=== PATIENT | male | born 1980 | race Caucasian/White ===

== ENCOUNTER 2017-01-09 19:07 | Emergency (ER) | payer SELFPAY | END 2017-01-09 21:30 | disposition left against medical advice (07) | LOC: ER 21:07 | DX: M79.671 Pain in right foot (principal) ==

== ENCOUNTER 2017-01-23 19:14 | Emergency (ER) | payer BC ==
[~2017-01-23] VITALS: Ht 165.1 cm; Wt 69.0 kg
[2017-01-23 20:45] VITALS: BP 118/78
== END 2017-01-23 21:59 | disposition home or self-care (01) ==
LOC: ER 19:15
DX: S40.862A Insect bite (nonvenomous) of left upper arm, initial encounter (principal); S40.861A Insect bite (nonvenomous) of right upper arm, initial encounter; S10.96XA Insect bite of unspecified part of neck, initial encounter; W57.XXXA Bitten or stung by nonvenomous insect and other nonvenomous arthropods, initial encounter; Y93.89 Activity, other specified; Y99.0 Civilian activity done for income or pay; Y92.69 Other specified industrial and construction area as the place of occurrence of the external cause
CPT/HCPCS: 99283

== ENCOUNTER 2018-03-21 19:32 | Emergency (ER) | payer BC ==
[~2018-03-21] VITALS: Ht 165.1 cm; Wt 70.0 kg
[2018-03-21 19:38] VITALS: BP 127/86
== END 2018-03-22 07:50 | disposition home or self-care (01) ==
LOC: ER 19:32
DX: J02.9 Acute pharyngitis, unspecified (principal); H69.91 Unspecified Eustachian tube disorder, right ear
CPT/HCPCS: 87070; 87430; 99284